=== PATIENT | male | born 1975 | race Caucasian/White ===

== ENCOUNTER 2017-07-02 13:27 | Emergency (ER) | payer OTHER ==
[~2017-07-02] VITALS: Ht 177.8 cm; Wt 122.5 kg
[~2017-07-02 13:27] MED LIST: AUGMENTIN 875875 MG PO; CLONAZEPAM 0.50.5 M1; CYCLOBENZAPRINE5 MG PO; DICLOFENAC SODI75 MG PO; FLEXERIL PO; HYDROCODONE-AP1 EAC6 PO; IBUPROFEN 800800 M1 PO; IBUPROFEN 800800 MG PO; MEDROLDOSEPACK PO; MELOXICAM15 MG PO; METHOCARBAMOL500 M1 PO; MOBIC7.5 MG PO; NEURONTIN 300300 M1 PO; NORCO 5-325 TA1 EAC1 PO; PREDNISONE 5 MG5 MG PO; PREDNISONE50 MG PO; SEROQUEL 25 MG25 M1 PO; SEROQUEL 50 MG50 MG PO; SERTRALINE HCL50 MG PO; TIZANIDINE HCL 22 MG PO; TRAMADOL 50 MG50 MG PO; TYLENOL325 MG PO; ULTRAM 50MG TAB50 MG PO; ZANAFLEX2 M1 PO; ZOLOFT25 MG PO; ZOLOFT50 M1 PO
[2017-07-02 13:38] VITALS: BP 151/100
[2017-07-02] MEDS ORDERED: PERIDEX15 ML PO (13:41)
[2017-07-02] MEDS ORDERED: AMOXICILLIN 50500 MG PO (14:08)
[2017-07-02] MEDS ORDERED: IBUPROFEN 800800 M1 PO (14:08)
[2017-07-02] MEDS ORDERED: HYDROCODONE-AP1 EAC6 PO (14:08)
== END 2017-07-02 14:25 | disposition home or self-care (01) ==
LOC: M.ERS 13:27
DX: M27.3 Alveolitis of jaws (principal); F32.9 Major depressive disorder, single episode, unspecified; F17.210 Nicotine dependence, cigarettes, uncomplicated; Z90.49 Acquired absence of other specified parts of digestive tract; Z88.5 Allergy status to narcotic agent

== ENCOUNTER 2018-07-05 13:39 | Emergency (ER) | payer OTHER ==
[~2018-07-05] VITALS: Ht 177.8 cm; Wt 114.3 kg
[~2018-07-05 13:39] MED LIST changes: +AMOXICILLIN 50500 MG PO; +PERIDEX15 ML PO
[2018-07-05] MEDS ORDERED: ZOLOFT50 MG PO (13:47)
[2018-07-05] MEDS ORDERED: HYDROCODON-ACE1 EAC7 PO (14:42)
[2018-07-05 14:48] VITALS: BP 146/82
== END 2018-07-05 14:52 | disposition home or self-care (01) ==
LOC: M.ERS 13:39
DX: S63.501A Unspecified sprain of right wrist, initial encounter (principal); S30.0XXA Contusion of lower back and pelvis, initial encounter; F32.9 Major depressive disorder, single episode, unspecified; Z90.49 Acquired absence of other specified parts of digestive tract; F17.210 Nicotine dependence, cigarettes, uncomplicated; Z88.5 Allergy status to narcotic agent; W11.XXXA Fall on and from ladder, initial encounter; Y93.89 Activity, other specified; Y92.89 Other specified places as the place of occurrence of the external cause; Y99.8 Other external cause status

== ENCOUNTER 2019-12-15 08:57 | Emergency (ER) | payer OTHER ==
[~2019-12-15] VITALS: Ht 177.8 cm; Wt 122.5 kg
[~2019-12-15 08:57] MED LIST changes: +HYDROCODON-ACE1 EAC7 PO; +PREDNISONE 20 M20 M1 PO; +ZOLOFT50 MG PO
[2019-12-15] MEDS ORDERED: NORVASC5 M1 PO (09:09)
[2019-12-15] MEDS ORDERED: BACTRIM DS TAB1 EACH PO (09:34)
[2019-12-15] MEDS ORDERED: NORCO 5-325 TA1 EAC2 PO (09:34)
[2019-12-15 09:43] VITALS: BP 158/96
== END 2019-12-15 09:43 | disposition home or self-care (01) ==
LOC: M.ERS 08:57
DX: S61.512D Laceration without foreign body of left wrist, subsequent encounter (principal); F32.9 Major depressive disorder, single episode, unspecified; F17.210 Nicotine dependence, cigarettes, uncomplicated; Z90.49 Acquired absence of other specified parts of digestive tract; Z88.6 Allergy status to analgesic agent; X58.XXXD Exposure to other specified factors, subsequent encounter